=== PATIENT | male | born 1945 ===

== ENCOUNTER → 2024-10-12 | Outpatient (CLI) | payer MEDICARE, BC ==
[2024-10-16 02:50] LABS: CREATININE,URINE - PER 24H 1650 mg/d (800-2100); CREATININE,URINE - PER VOLUME 220 mg/dL; HOURS COLLECTED 24 hr; METANEPHRINE,UR - RATIO TO CRT 76 ug/g CRT (0-300); METANEPHRINE,URINE - PER 24H 125 ug/d (55-320); METANEPHRINE,URN - PER VOLUME 167 ug/L; NORMETANEPHRINE,U - PER VOLUME 719 ug/L; NORMETANEPHRINE,URN - PER 24H 539 ug/d (114-865); NORMETANEPHRINE,URN/CRT RATIO 327 ug/g CRT (0-400)
== END | disposition home or self-care (01) ==
LOC: LAB SHORT 04:30 → LAB 04:30
PROVIDERS: Internal Medicine Endocrinology, Diabetes & Metabolism
DX: R22.1 Localized swelling, mass and lump, neck (principal)
CPT/HCPCS: 81050; 83835